=== PATIENT | female | born 1980 | race Caucasian/White ===

== ENCOUNTER 2019-05-18 13:59 | Emergency (ER) | payer OTHER, SELFPAY ==
[~2019-05-18] VITALS: Ht 167.6 cm; Wt 71.0 kg
--- NOTE | 2019-05-18 14:22 | NUR ---
PT C/O CP THAT STARTED YESTERDAY AT 0900. HX MILD MO 2016. CONNECTED TO MONITORING. CALL LIGHT IN REACH. AT BEDSIDE TO ASSESS PT.
[2019-05-18] MEDS ORDERED: KETOROLAC 30 MG/1 ML ONE (14:28)
[2019-05-18] MEDS ORDERED: MAALOX/HYOSCYAMINE/LIDOCAINE 45 ML BTL ONE (14:28)
[2019-05-18] MEDS ORDERED: MAALOX/HYOSCYAMINE/LIDOCAINE 45 ML BTL PO ONE (14:30)
[2019-05-18] MEDS ORDERED: KETOROLAC 30 MG/1 ML IM ONE (14:30)
--- NOTE | 2019-05-18 14:40 | NUR ---
MEDS ADMIN PER JUN. PT RESTING ON HENNY. HERACLIO. LABS DRAWN. XRAY COMPLETE.
[2019-05-18 14:45] LABS: MEAN CORPUSCULAR HEMOGLOBIN 32.8 pg (27.0-34.8); MEAN CORPUSCULAR HGB CONC 33.4 g/dL (32.4-35.8); MEAN CORPUSCULAR VOLUME 98.1 fL (80-100); MEAN PLATELET VOLUME 7.6 fL (7.4-10.4); PLATELET COUNT 250 x10^3/uL (130-400); RED BLOOD COUNT 4.27 x10^6/uL (3.82-5.3); RED CELL DISTRIBUTION WIDTH 12.8 % (9.6-15.2)
[2019-05-18 14:58] LABS: ALANINE AMINOTRANSFERASE 10 U/L (12-78); ALBUMIN 3.2 g/dL (3.4-5.0); ANION GAP 8 mmol/L (5-15); CALCIUM 8.3 mg/dL (8.5-10.1); CHLORIDE 106 mmol/L (98-107); CREATININE 0.89 mg/dL (0.55-1.02)
[2019-05-18 15:03] LABS: ALKALINE PHOSPHATASE 86 U/L (45-117); BILIRUBIN,TOTAL 0.3 mg/dL (0.2-1.0); TOTAL PROTEIN 7.2 g/dL (6.4-8.2); TROPONIN I < 0.015 ng/mL (0.000-0.045)
[2019-05-18 15:30] LABS: BASOPHILS # (AUTO) 0.04 x10^3/uL (0-0.1); BASOPHILS % (AUTO) 0 % (0-1); EOSINOPHILS # (AUTO) 0.01 x10^3/uL (0-0.4); EOSINOPHILS % (AUTO) 0 % (1-7); LYMPHOCYTES # (AUTO) 1.02 x10^3/uL (1-3.4); LYMPHOCYTES % (AUTO) 6 % (22-44); MD SCAN; MONOCYTES # (AUTO) 0.65 x10^3/uL (0.2-0.8); MONOCYTES % (AUTO) 4 % (2-9); NEUTROPHILS # (AUTO) 16.04 x10^3/uL (1.8-6.8); NEUTROPHILS % (AUTO) 90 % (42-75)
--- NOTE | 2019-05-18 15:48 | NUR ---
ALL RESULTS ARE BACK AT THIS TIME. CHART UP FOR RECHECK.
[2019-05-18 17:38] VITALS: BP 128/86
== END 2019-05-18 17:46 | disposition home or self-care (01) ==
LOC: ED 14:49
DX: R07.89 Other chest pain (principal); J02.0 Streptococcal pharyngitis
CPT/HCPCS: 36415; 71045; 80053; 83880; 84484; 85025; 85379; 93005; 96372; 99284; J1885